=== PATIENT | female | born 1985 | race Caucasian/White ===

== ENCOUNTER → 2016-04-03 | Outpatient (CLI) | payer OTHER ==
[~2016-04-03] MED LIST: FRRS300 PO; OXYC-57 PO; PRENTAB26 PO
[2016-04-03 13:05] LABS: BASO % 0.3 %; BASO ABS # 0.04 K/uL (0-0.2); COMPLETE YES; EOS % 0.9 %; HEMATOCRIT 39.2 % (37-47); IG% 0.3 %; LYMPH % 17.8 %; LYMPH ABS # 2.38 K/uL (1.2-3.4); MEAN CELL VOLUME 80.2 fL (80-100); MEAN CORPUSCULAR HEMOGLOBIN 28.2 pg (25-34); MEAN CORPUSCULAR HGB CONC 35.2 g/dl (32-36); MEAN PLATELET VOLUME 10.2 fL (7.4-10.4); MONO % 5.8 %; NEUT % 74.9 %; PLATELET COUNT 288 K/uL (130-400); RED BLOOD COUNT 4.89 M/uL (4.2-5.4); WHITE BLOOD COUNT 13.35 K/uL (4.8-10.8)
== END | disposition home or self-care (01) ==
LOC: C.LAB1850 11:33
PROVIDERS: ATTEND Obstetrics & Gynecology
DX: Z34.00 Encounter for supervision of normal first pregnancy, unspecified trimester (principal)

== ENCOUNTER → 2016-04-03 | Outpatient (CLI) | payer OTHER ==
[2016-04-03 13:45] LABS: URINE APPEARANCE CLEAR (CLEAR); URINE BILIRUBIN NEG (NEG); URINE COLOR YELLOW; URINE NITRITE NEG (NEG); URINE SPECIFIC GRAVITY 1.005 (1.000-1.030); UROBILINOGEN NEG (NEG)
[2016-04-03 13:48] LABS: MANUAL MICROSCOPIC REQUIRED? NO; REVIEW REQ? NO
[2016-04-08 03:25] LABS: CHLAMYDIA TRACH RNA*** NOT DETECTED (NOT DETECTED); GC (NEIS GONORRHOEAE)RNA** NOT DETECTED (NOT DETECTED)
== END | disposition home or self-care (01) ==
LOC: C.LABSPEC 13:18
PROVIDERS: ATTEND Obstetrics & Gynecology
DX: Z34.00 Encounter for supervision of normal first pregnancy, unspecified trimester (principal)

== ENCOUNTER → 2016-04-03 | Outpatient (CLI) | payer OTHER | END | disposition home or self-care (01) | LOC: C.PAPS 15:04 | PROVIDERS: ATTEND Obstetrics & Gynecology | DX: Z34.01 Encounter for supervision of normal first pregnancy, first trimester (principal) ==

== ENCOUNTER → 2016-05-28 | Outpatient (CLI) | payer OTHER ==
[2016-05-28 19:40] LABS: GTGD 50 Grams
== END | disposition home or self-care (01) ==
LOC: C.LAB1850 14:47
PROVIDERS: ATTEND Obstetrics & Gynecology
DX: Z34.01 Encounter for supervision of normal first pregnancy, first trimester (principal)

== ENCOUNTER → 2016-08-21 | Outpatient (CLI) | payer OTHER ==
[2016-08-21 14:49] LABS: URINE APPEARANCE CLEAR (CLEAR); URINE BILIRUBIN NEG (NEG); URINE COLOR YELLOW; URINE EPITHELIAL CELL AUTO >30 /lpf (0-5); URINE NITRITE NEG (NEG); URINE SPECIFIC GRAVITY 1.013 (1.000-1.030); UROBILINOGEN NEG (NEG)
[2016-08-21 15:12] LABS: MANUAL MICROSCOPIC REQUIRED? NO; REVIEW REQ? NO
== END | disposition home or self-care (01) ==
LOC: C.LABSPEC 13:55
PROVIDERS: ATTEND Obstetrics & Gynecology
DX: Z33.1 Pregnant state, incidental (principal)

== ENCOUNTER → 2016-09-19 | Outpatient (CLI) | payer OTHER | END | disposition home or self-care (01) | LOC: C.LAB1850 07:47 | PROVIDERS: ATTEND Obstetrics & Gynecology | DX: O28.9 Unspecified abnormal findings on antenatal screening of mother (principal) ==

== ENCOUNTER → 2016-10-21 | Outpatient (CLI) | payer OTHER | END | disposition home or self-care (01) | LOC: C.LABSPEC 16:46 | PROVIDERS: ATTEND Obstetrics & Gynecology | DX: Z33.1 Pregnant state, incidental (principal) ==

== ENCOUNTER → 2016-10-22 | Outpatient (CLI) | payer OTHER ==
[2016-10-22 17:36] LABS: BASO % 0.2 %; BASO ABS # 0.03 K/uL (0-0.2); COMPLETE YES; HEMATOCRIT 34.6 % (37-47); IG% 1.5 %; LYMPH ABS # 2.27 K/uL (1.2-3.4); MEAN CELL VOLUME 82.4 fL (80-100); MEAN CORPUSCULAR HEMOGLOBIN 26.4 pg (25-34); MEAN CORPUSCULAR HGB CONC 32.1 g/dl (32-36); MEAN PLATELET VOLUME 10.7 fL (7.4-10.4); MONO % 5.5 %; NEUT % 77.8 %; PLATELET COUNT 335 K/uL (130-400); WHITE BLOOD COUNT 16.24 K/uL (4.8-10.8)
[2016-10-22 17:54] LABS: ALT/SGPT 32 U/L (12-78); AST/SGOT 27 U/L (15-37); CREATININE 0.53 mg/dl (0.60-1.20)
[2016-10-22 17:55] LABS: URINE TOTAL PROTEIN 5.2 mg/dl (0-11.9)
[2016-10-22 23:15] LABS: URINE TOTAL PROTEIN CALC 140.4 mg/24 hr (0-149.1)
[2016-10-22 23:16] LABS: CREATININE 0.52 mg/dl (0.6-1.2)
== END | disposition home or self-care (01) ==
LOC: C.LAB1850 16:56
PROVIDERS: ATTEND Obstetrics & Gynecology
DX: O13.3 Gestational [pregnancy-induced] hypertension without significant proteinuria, third trimester (principal)

== ENCOUNTER 2016-10-24 12:17 | Inpatient (IN) | payer OTHER ==
[~2016-10-24] VITALS: Ht 160 cm; Wt 71.2 kg
[2016-10-24] MEDS ORDERED: LACTATED RINGER'S 1000ML 1,000 ML IV PRN (12:49)
[2016-10-24] MEDS ORDERED: LACTATED RINGER'S 1000ML 500 ML IV PRN ×2 (12:49→22:58)
[2016-10-24] MEDS ORDERED: OXYTOCIN 30 UNITS/500ML NSS IV PRN (13:00)
[2016-10-24 13:13] LABS: HEMATOCRIT 30.9 % (37-47); MEAN CELL VOLUME 81.5 fL (80-100); MEAN CORPUSCULAR HEMOGLOBIN 26.6 pg (25-34); MEAN CORPUSCULAR HGB CONC 32.7 g/dl (32-36); MEAN PLATELET VOLUME 10.7 fL (7.4-10.4); PLATELET COUNT 296 K/uL (130-400); RED BLOOD COUNT 3.79 M/uL (4.2-5.4); WHITE BLOOD COUNT 12.85 K/uL (4.8-10.8)
[2016-10-24] MEDS ORDERED: MISOPROSTOLTAB 50 MCG TAB PV SCH (13:15)
[2016-10-24] MEDS ORDERED: PATIENT'S ALLERGY INFO NEEDS ENTERED SCH (13:15)
[2016-10-24] MEDS ORDERED: MISOPROSTOLTAB 50 MCG TAB ONE (13:27)
[2016-10-24 13:45] VITALS: Ht 160 cm; Wt 71.2 kg
[2016-10-24] MEDS ORDERED: PRENTAB26 PO (13:50)
[2016-10-24] MEDS: LACTATED RINGER'S 1000ML 1,000 ML IV SCH ×2 (14:44→15:53)
[2016-10-24] MEDS ORDERED: FENTANYL 2MCG/ML ROPIV 1.25MG/ML 100ML BAG EPI ONE (22:21)
[2016-10-24] MEDS ORDERED: FENTANYL CITRATE INJ 50 MCG/1 ML 2 ML VIAL ONE (22:21)
[2016-10-24] MEDS ORDERED: EpHEDrine SULFATE INJ 50 MG/ML AMP ONE (22:21)
[2016-10-24] MEDS ORDERED: BUPIVACAINE 0.25% 30 ML VIAL ONE (22:21)
[2016-10-24] MEDS ORDERED: NALOXONE HCL INJ 1 MG in SODIUM CHLORIDE 0.9% 1000ML 1,000 ML IV PRN ×4 (22:58)
[2016-10-24] MEDS ORDERED: DiphenhydrAMINE HCL 50 MG/ML VIAL IV PRN (23:00)
[2016-10-24] MEDS ORDERED: PROMETHAZINE HCL INJ 25 MG in SODIUM CHLORIDE 0.9% 50ML 50 ML IV PRN (23:00)
[2016-10-24] MEDS ORDERED: NALOXONE HCL INJ 0.4 MG/1 ML VIAL/CARP IV PRN (23:00)
[2016-10-24] MEDS ORDERED: NALBUPHINE HCL INJ 10 MG/ML AMP IV PRN (23:00)
[2016-10-24] MEDS ORDERED: EpHEDrine SULFATE INJ 50 MG/ML AMP IV PRN (23:00)
[2016-10-24] MEDS ORDERED: ONDANSETRON INJ 2 MG/ML 2 ML VIAL IV PRN (23:00)
[2016-10-24] MEDS ORDERED: FENTANYL 2MCG/ML ROPIV 1.25MG/ML 100ML BAG EPI PRN (23:00)
[2016-10-25] MEDS ORDERED: LACTATED RINGER'S 1000ML 1,000 ML IV SCH (07:05)
--- NOTE | 2016-10-25 07:13 | Anesthesia Procedure Note ---
Anesthesia Epidural Removal Nt Date & Time Oct 25, 2016 at 07:13 Vital Signs Pain Intensity: 0.0 Notes Mental Status: alert / awake / arousable, participated in evaluation Nausea / Vomiting: adequately controlled Pain: adequately controlled Airway Patency, RR, SpO2: stable & adequate BP & HR: stable & adequate Hydration State: stable & adequate Neuraxial Anesthesia: was administered, sensory block is resolving Anesthetic Complications: no major complications apparent, pt satisfied with anesthetic care Epidural: removed without complications, with tip intact
[2016-10-25] MEDS ORDERED: LANOLIN OINT EXT PRN ×2 (07:15)
[2016-10-25] MEDS ORDERED: OXYTOCIN 30 UNITS/500ML NSS IV PRN (07:15)
[2016-10-25] MEDS ORDERED: SUPERCREAM 0.870 % 15GM JAR EXT PRN (07:15)
[2016-10-25] MEDS ORDERED: DIPHTHERIA/TETANUS/PERTUSSIS 0.5 ML SYR/VIAL IM. ONE (07:15)
[2016-10-25] MEDS ORDERED: HYDROCORTISONE ACETATE 25 MG SUPP PR PRN (07:15)
[2016-10-25] MEDS ORDERED: BENZOCAINE 20% AER SPR 82.5 GM CAN EXT PRN (07:15)
[2016-10-25] MEDS: ACETAMINOPHEN 325 MG TAB PO PRN ×2 (08:36→18:42)
--- NOTE | 2016-10-25 09:00 | DELIVERY SUMMARY ---
DATE OF OPERATION: 10/25/2016 PREOPERATIVE DIAGNOSES: 1. [place] intrauterine at term. 2. Gestational hypertension. 3. Group B strep negative. POSTOPERATIVE DIAGNOSES: Same. PROCEURE: Spontaneous vaginal delivery and repair of second degree laceration. SURGEON: Bernadine Juarez MD. APPEALS EXAMINER: None. ESTIMATED BLOOD LOSS: 350. COMPLICATIONS: None. DISPOSITION: Stable in labor and delivery. DESCRIPTION: Kristen is a 31-year-old G1, P0 who presented for induction of labor due to gestational hypertension at term on 10/24/2016. She was induced using 50 mcg of Cytotec per vagina for cervical ripening and this appeared to kick her directly in to labor. She continued to contract q. 1 to 2 minutes throughout the night. She ultimately spontaneously ruptured her membranes and did receive an epidural for pain management. She reached complete dilation in the early hours of October 25. She was coached through pushing which she did extremely well and I was brought to the bed side. I then gowned for delivery. As the baby's head had descended rapidly, there was noted to be a deceleration of the heart rate which was persistently in the 60-80 range. Kristen was coached through additional pushing and was able to bring the head to but not delivery. I then verbally consented Ms. Diana for a midline episiotomy in order to effect delivery as I was concerned for the heart tones. She did agree to the same. Through her next push using bandage scissors, I was able to make an approximately 0.5 to 1 cm cut in the perineum before she rapidly was able to bring the head to delivery. The cord was noted to be tightly wrapped around the neck x1. I was unable to reduce this on the perineum, therefore the was delivered through this. She delivered the shoulders and the remainder of the very rapidly. The infant was placed on the maternal abdomen, where the cord was doubly clamped and cut and the was taken to the warmer for further attention. There was noted to be a second degree perineal laceration, which was repaired in the usual manner with 3-0 Vicryl suture. The fundus was firm. Lochia was minimal and there were no cervical or vaginal lacerations requiring repair and at the present time, the mother and baby are in stable condition having tolerated delivery well. I attest to the content of the Intraoperative Record and any orders documented therein. Any exception s are noted below.
[2016-10-25] MEDS: PRENATAL VITAMIN TAB PO SCH (09:21)
[2016-10-25] MEDS: DOCUSATE SODIUM 100 MG CAP PO SCH ×2 (09:21→19:52)
[2016-10-25 11:00] VITALS: BP 139/86; PULSE 90; TEMP 36.7
[2016-10-25 15:15] VITALS: BP 151/88; PULSE 96; TEMP 36.8
[2016-10-25 20:20] VITALS: BP 135/82; PULSE 87; TEMP 36.8
[2016-10-25 22:45] VITALS: BP 146/88; PULSE 87; TEMP 36.5
[2016-10-25] MEDS: OXYCODONE/ACETAMINOPHEN 5-325 TAB PO PRN (22:49)
[2016-10-26 03:45] VITALS: BP 147/89; PULSE 78; TEMP 36.7
[2016-10-26] MEDS: OXYCODONE/ACETAMINOPHEN 5-325 TAB PO PRN ×2 (04:01→08:31)
[2016-10-26 07:37] LABS: HEMATOCRIT 28.7 % (37-47)
[2016-10-26 08:20] VITALS: BP 156/93; PULSE 80; TEMP 36.5
[2016-10-26] MEDS: DOCUSATE SODIUM 100 MG CAP PO SCH (08:31)
[2016-10-26] MEDS: PRENATAL VITAMIN TAB PO SCH (08:31)
--- NOTE | 2016-10-26 08:38 | Progress Note ---
Subjective Oct 26, 2016. Subjective conversation w/ patient, physical exam Ambulation: ambulating normally Voiding: no voiding problems Passing Gas: Yes Diet Tolerance: Regular Diet Lochia: Small Feeding Type: Breast Feeding Review of Systems Constitutional: No fever, No chills, No sweats, No weight loss, No weakness, No fatigue, No problem reported Objective Vital Signs Date Time Temp Pulse Resp B/P (MAP) Pulse Ox O2 Delivery O2 Flow Rate FiO2 10/26/16 03:45 36.7 78 18 147/89 (108) Room Air 10/25/16 22:45 36.5 87 18 146/88 (107) Room Air 10/25/16 22:45 Room Air 10/25/16 20:20 36.8 87 18 135/82 (99) Room Air 10/25/16 15:15 Room Air 10/25/16 15:15 36.8 96 20 151/88 (109) Room Air 10/25/16 11:00 36.7 90 18 139/86 (103) Room Air 10/25/16 11:00 Room Air Physical Exam General Appearance: WELL-APPEARING, NO APPARENT DISTRESS Abdomen: normal bowel sounds, non tender, soft Fundus: Firm, Non-Tender, Relation to Umbilicus (at U) Extremities: no calf tenderness Laboratory Results Last 24 Hours Test 10/26/16 07:14 Hemoglobin 9.6 g/dL Hematocrit 28.7 % Assessment and Plan Day#: 1 Continue Routine Care: stable course- history of gestational HTN BP's have been mildly elevated, she is asymptomatic will discharge to home later if BP's continue to be reasonable followup for BP check in 2 weeks.
[2016-10-26 08:45] VITALS: BP 164/102
[2016-10-26] MEDS ORDERED: FRRS300 PO (09:33)
--- NOTE | 2016-10-26 09:35 | Discharge Instructions ---
Discharge Instructions Date of Service Oct 26, 2016. Admission Reason for Admission: Induction Discharge Discharge Diagnosis / Problem: gestational hypertension, normal delivery Discharge Goals Goal(s): Routine recovery after delivery Medications Continue Dispensed Medications: supercream, dermaplast, tucks, lansinoh Activity Recommendations Activity Limitations: per Instructions/Follow-up section . Instructions / Follow-Up Instructions / Follow-Up ACTIVITY RECOMMENDATIONS: * Gradual return to full activity over the next 2-3 weeks. * No lifting - nothing heavier than baby over the next 2-3 weeks. * Do not engage in vigorous exercise, sexual activity or sports until cleared by your physician. * Do not drive or operate any motorized equipment until cleared by your physician. * You may shower/bathe daily. MEDICATIONS: For discomfort or pain, you may use Acetaminophen (Tylenol), Ibuprofen (Advil), or Naproxen (Aleve) following the package directions. For constipation you may use Colace following the package directions. BREAST CARE: If you are not breast feeding: * Wear a supportive bra 24 hours a day for one to two weeks. * Avoid stimulating your breasts and nipples as much as possible during the first few weeks after delivery. * When taking a shower, have the warm water hit your back, not breasts. * When your breasts feel full, apply ice packs. Usually three to four times a day helps ease the discomfort. * Take a mild pain medication (Tylenol / Motrin) when you are uncomfortable. If breast feeding: * Use breast milk to lubricate nipples. Lansinoh cream may be used for sore nipples. You do not need to remove cream prior to breast feeding. If using a different brand of cream, check the label for directions regarding removal of cream prior to nursing. * Wear a supportive bra. * If having problems with breasts or breast feeding, call a independent beauty consultant or your health care provider. EPISIOTOMY CARE: After delivery, if you have an episiotomy (stitches), the following steps will ease discomfort and aid healing. * For the first 24 hours after delivery, place ice packs next to your episiotomy to help reduce swelling. * After the first 24 hour-period, sitz baths, either portable or in the tub, are suggested. A shower with a shower arm sprayed over the episiotomy may be comforting. * Diana care should be done after each voiding and bowel movement. Squirt warm water from a plastic bottle over the perineum (region of the body between the anus and urinary opening) and pat dry. * Use Dermoplast to ease discomfort. Shake container. [place] directly over the episiotomy. Place a Tucks on a clean sanitary pad next to your episiotomy. SPECIAL CARE INSTRUCTIONS: When you are discharged from the hospital, it is important for you to follow the instructions listed below: * During the first week at home, you should be able to care for yourself and your baby. In addition, the usual light household activities are encouraged. * Limit your activities to the way you feel. Do not try to clean the house or move furniture. Be sensible. * If you actively engage in sports and have done so up until the time of your delivery, you may resume these activities as soon as you feel able. This may take up to one month or even longer. Use good judgment. * Continue to take your vitamins for at least six weeks after the of your baby. * Your diet need not be limited unless you were on a special diet before your delivery. Breast-feeding mothers need around 2500 calories per day and at least 64-80 ounces of fluid per day (8 to 10 glasses). * You should eat foods from the four major food groups. Crash diets or fad diets are to be avoided. Eating lean meats, fresh fruits and vegetables, low-fat dairy products, high fiber foods and a regular exercise program, will help you get back to your pre- weight without putting your health at risk. * Constipation is sometimes a problem after delivery. Take a mild laxative as needed. If breast feeding, Milk of Magnesia is acceptable to use. You may use a suppository or Fleets enema if no episiotomy. * A daily shower or tub bath is suggested. Be sure to thoroughly and gently dry the perineum. * A bloody vaginal discharge will usually continue until around four weeks post . A small amount of bleeding may continue for as long as six weeks. Vaginal discharge changes from the bright red bleeding after delivery to pink then brownish and finally yellowish-pink before becoming white and disappearing. * Bleeding may increase with activity. Your first period may come in 4-8 weeks. If you are breast feeding, your period may be delayed even longer. * [place] (sex) can begin whenever both you and your partner feel comfortable and do not have any form of genital infection. It is recommended that you wait at least six weeks for internal and external healing to occur. If you have questions, please talk to your health care practitioner. A condom should be used to prevent infection and . * Foreplay, gentle intercourse and lubrication is very important the first several times to prevent pain. A water-based lubricant such as K-Y jelly or Astroglide may be used. * If you have RH negative blood and your baby is RH positive, you will receive RHOGAM by injection prior to discharge. The nurse will give you a card to keep with you that has the date and place that you received RHOGAM after delivery. * During your care, you had a Rubella screen done to check for the presence of rubella antibodies in your blood. If your test was negative, you will receive a Rubella vaccine prior to discharge. This vaccine may cause a fever, soreness at the injection site and flu-like symptoms. If these symptoms persist, notify your health care practitioner. is not advised for one month after a Rubella vaccine. * Verbalizes understanding of car seat law as reviewed with patient nursing. * Car Seat hand-out given and reviewed with patient by nursing. * Shaken baby information reviewed with patient by nursing. Call you doctor if: * Heavy bleeding (saturating several pads an hour) or passing clots the size of your fist. * A fever >101 degrees F (38.3 degrees C) on two occasions four hours apart and /or chills. * Unusual pain in the pelvic or vaginal areas. * "Baby Blues" lasting longer than two weeks. If you have any questions or concerns, call your health care practitioner at . FOLLOW UP VISIT: * Please call the office at to schedule a 6 week examination. It is important you keep this appointment. It is important for you to make arrangements for either yearly or twice yearly check-ups thereafter. Blood pressure check in 2 weeks - the office will call with an appointment. Current Hospital Diet Patient's current hospital diet: Regular OB Diet Discharge Diet Recommended Diet: Regular OB Diet Pending Studies Studies pending at discharge: no Medical Emergencies . Who to Call and When: Medical Emergencies: If at any time you feel your situation is an emergency, please call 911 immediately. . Non-Emergent Contact Non-Emergency issues call your: Process Engineer . . "Provider Documentation" section prepared by Alondra Katz. . VTE Core Measure Inpt VTE Proph given/why not?: Treatment not indicated
[2016-10-26] MEDS ORDERED: OXYC-57 PO (09:38)
[2016-10-26 12:15] VITALS: BP 153/96; PULSE 78
[2016-10-26 14:50] VITALS: BP_DIAS 96; PULSE 78; TEMP 36.5
[2016-10-27] MEDS ORDERED: FERROUS SULFATE 325 MG TAB PO SCH (08:00)
== END 2016-10-26 15:35 | disposition home or self-care (01) | DRG 775 ==
LOC: C.LD 12:17 → C.OBG 10-25 16:45
PROVIDERS: ADMIT Obstetrics & Gynecology; ATTEND Obstetrics & Gynecology
PROC: 0W8NXZZ Division of Female Perineum, External Approach (ICD-10-PCS; principal; 2016-10-25)
PROC: 3E0P7GC Introduction of Other Therapeutic Substance into Female Reproductive, Via Natural or Artificial Opening (ICD-10-PCS; principal; 2016-10-25)
PROC: 10E0XZZ Delivery of Products of Conception, External Approach (ICD-10-PCS; principal; 2016-10-25)
DX: O13.4 Gestational [pregnancy-induced] hypertension without significant proteinuria, complicating childbirth (principal); Z37.0 Single live birth; O69.1XX0 Labor and delivery complicated by cord around neck, with compression, not applicable or unspecified; O76 Abnormality in fetal heart rate and rhythm complicating labor and delivery; O99.02 Anemia complicating childbirth; D64.9 Anemia, unspecified; O99.52 Diseases of the respiratory system complicating childbirth; J45.909 Unspecified asthma, uncomplicated; O99.214 Obesity complicating childbirth; E66.9 Obesity, unspecified; Z68.27 Body mass index [BMI] 27.0-27.9, adult; Z3A.37 37 weeks gestation of pregnancy

== ENCOUNTER → 2016-10-31 | Outpatient (CLI) | payer OTHER ==
[2016-10-31 18:02] LABS: URINE APPEARANCE CLEAR (CLEAR); URINE BILIRUBIN NEG (NEG); URINE COLOR YELLOW; URINE EPITHELIAL CELL AUTO 20-30 /lpf (0-5); URINE NITRITE NEG (NEG); URINE PH 6.5 (4.5-7.5); URINE SPECIFIC GRAVITY 1.009 (1.000-1.030); UROBILINOGEN NEG (NEG)
[2016-10-31 18:20] LABS: MANUAL MICROSCOPIC REQUIRED? NO; REVIEW REQ? YES
== END | disposition home or self-care (01) ==
LOC: C.LABSPEC 17:10
PROVIDERS: ATTEND Obstetrics & Gynecology
DX: R39.9 Unspecified symptoms and signs involving the genitourinary system (principal)

== ENCOUNTER 2019-06-29 07:45 | Inpatient (IN) ==
[2019-06-29] MEDS ORDERED: LACTATED RINGER'S 1,000 ML IV PRN (08:01)
[2019-06-29] MEDS ORDERED: OXYTOCIN 30 UNITS/500 ML BAG IV PRN ×3 (08:01→11:50)
[2019-06-29] MEDS ORDERED: BUPIVACAINE 0.25% 30 ML VIAL ONE (08:24)
[2019-06-29] MEDS ORDERED: fentaNYL citrate 100 MCG/2 ML VIAL ONE (08:24)
[2019-06-29] MEDS ORDERED: ePHEDrine sulfate 50 MG/ML AMP ONE (08:24)
[2019-06-29] MEDS ORDERED: fentaNYL 2MCG/ML ROPIV 1.25MG/ML 100 ML BAG EPI ONE (08:25)
[2019-06-29 08:31] LABS: Hematocrit (blood only) 34.5 % (37-47); Hemoglobin 10.8 g/dL (12.0-16.0); Mean Corpuscular Hemoglobin 24.8 pg (25-34); Mean Corpuscular Volume 79.3 fL (80-100); Platelet Count 261 K/uL (130-400); RDW Coefficient of Variation 15.4 % (11.5-14.5); RDW Standard Deviation 44.3 fL (36.4-46.3); Red Blood Count 4.35 M/uL (4.2-5.4); White Blood Count 18.99 K/uL (4.8-10.8)
--- NOTE | 2019-06-29 08:35 | Anesthesiology Consultation ---
Date of Service June 29, 2019 Assessment & Plan (1) Encounter for pre-operative examination: Chart Review Chart Review: Acceptable Risk for Labor Epidural Consults Requested none ASA ASA2 Proposed Anesthesia Anesthesia Type: Labor Epidural Risk / Benefits Reviewed With: PT / POA / Parent / Guardian, Accepts Plan and Informed Consent Obtained History Height/Weight Weight: 75.735 kg Allergies Allergy/AdvReac Type Severity Reaction Status Date / Time Bactrim Allergy Intermediate HIVES Verified 10/24/16 13:41 Sulfa (Sulfonamide Allergy Intermediate HIVES Verified 06/28/19 09:43 Antibiotics) sulfamethoxazole Allergy Intermediate HIVES Verified 06/28/19 09:43 trimethoprim Allergy Intermediate HIVES Verified 06/28/19 09:43 cashew nut Allergy Mild GI SYMPTOMS Verified 06/28/19 09:43 walnut Allergy Mild GI SYMPTOMS Verified 06/28/19 09:43 Medications Home Medications Medication Instructions Recorded Confirmed Last Taken vit [id number] pkg PO 06/29/19 06/28/19 08:00 [ + DHA] Past Medical History Medical History History of gestational hypertension Migraine Varicella Exercise / Class Metabolic Activity II 4-5 Yardwork/Stairs/Walk up hill Past Family History Family History Family/Other Diabetes Family/Other Breast cancer Grandmother (Paternal) Endometriosis Aunt Endometriosis Mother Endometriosis Ovarian cyst Fibroid Past Surgical History Surgical History S/P wisdom tooth extraction Past Anesthesia History No Hx of Anesthesia Complications and No Family Hx of Anesthesia Complications History of PONV No Hx of PONV and No Hx of Motion Sickness Social History Smoking Status: Never smoker Hx Alcohol Use: No Hx Substance Use: No substance use type: does not use Physical Exam Vital Signs Last Vital Signs Temp 98.1 F 06/29/19 08:12 Pulse 95 H 06/29/19 08:30 Resp 22 06/29/19 08:12 BP 112/81 06/29/19 07:58 Pulse Ox 94 06/29/19 08:30 ENMT Mouth: no dentition abnormality Thyromental Distance: > or= 3.5 Finger Breadths Mallampati Class: II Neck normal visual inspection Respiratory normal respiratory effort Auscultation: lungs clear to auscultation bilaterally Cardiovascular Rate/Rhythm: regular rate and regular rhythm Testing Laboratory Results 06/29/19 08:21
[2019-06-29] MEDS ORDERED: ePHEDrine sulfate 50 MG/ML AMP IV PRN (08:54)
[2019-06-29] MEDS ORDERED: DiphenhydrAMINE HCL 50 MG/ML VIAL IV PRN (08:54)
[2019-06-29] MEDS ORDERED: fentaNYL 2MCG/ML ROPIV 1.25MG/ML 100 ML BAG EPI PRN (08:54)
[2019-06-29] MEDS ORDERED: NALOXONE HCL 1 MG in SODIUM CHLORIDE 0.9% 1000ML 1,000 ML IV PRN (08:54)
[2019-06-29] MEDS ORDERED: NALOXONE HCL 0.4 MG/1 ML VIAL/CARP IV PRN (08:54)
[2019-06-29] MEDS ORDERED: ONDANSETRON INJ 2 MG/ML 2 ML VIAL IV PRN (08:54)
[2019-06-29] MEDS ORDERED: NALBUPHINE HCL INJ 10 MG/ML AMP IV PRN (08:54)
[2019-06-29 08:56] LABS: Mean Corpuscular Hgb Conc 31.3 g/dL (32-36)
--- NOTE | 2019-06-29 09:05 | History & Physical Report ---
Date of Service June 29, 2019 Assessment & Plan (1) : 33 yo @ 40 weeks 4 days here for induction of labor for post FELICIANO complicated by hx. of gHTN, Asthma and migraines - GBS negative, blood type A+ - Ab negative, RI, RPR NR, Hep-B negative, - epidural for pain control - Balloon was placed one day prior and removed from the vagina this morning - SVE 5 1/2 80% and -2 - AROM @ 9:10 AM - initiate Pitocin fetus - vertex - category 1 tracing History of Present Illness Chief Complaint: induction Primary Care Provider: NO PCP Kristen Stringer is a 33 yo @ 40.4 determined via certain LMP. She is here for induction of labor for post estimated due date, and has been having contractions since midnight that intensified at 2AM. She has not had any loss of fluid or bleeding with good movement. Her prior delivery was complicated by gestational hypertension. She was started on ASA for gestational hypertension this , she took ASA for 2 weeks and stopped since her blood pressures were not elevated. She did not have insurance until February 2019 and declined some of the tests. She had declined flu and Tdap. She has a history of Migraines but has not had any during . She has a history of Asthma but has not had to use an inhaler during . Allergies Allergy/AdvReac Type Severity Reaction Status Date / Time Bactrim Allergy Intermediate HIVES Verified 10/24/16 13:41 Sulfa (Sulfonamide Allergy Intermediate HIVES Verified 06/28/19 09:43 Antibiotics) sulfamethoxazole Allergy Intermediate HIVES Verified 06/28/19 09:43 trimethoprim Allergy Intermediate HIVES Verified 06/28/19 09:43 cashew nut Allergy Mild GI SYMPTOMS Verified 06/28/19 09:43 walnut Allergy Mild GI SYMPTOMS Verified 06/28/19 09:43 Home Medications Home Medications Medication Instructions Recorded Confirmed Type vit [id number] pkg PO 06/29/19 History [ + DHA] Patient History Medical History History of gestational hypertension Migraine Varicella Surgical History S/P wisdom tooth extraction Family History Family/Other Diabetes Family/Other Breast cancer Grandmother (Paternal) Endometriosis Aunt Endometriosis Mother Endometriosis Ovarian cyst Fibroid Social History (Updated 12/16/18 @ 13:51 by Zita Silver) Preferred Language: Korean Communication Ability: Effective Beliefs That Will Affect Care: None marital status: marital status details: Gutierrez Stringer (30) [phone] Current Living Situation: Spouse and Family Current Living Situation Comment: and daughter current occupational status: employed current occupation: Realtor Other Information That Helps Us Care for You: No Feels Safe at Home: Yes Safety Concerns: Feels Safe At This Time Smoking Status: Never smoker Hx Alcohol Use: No Hx Substance Use: No Childhood Exposure to Second-Hand Smoke: No Review of Systems Denies: fevers/chills Denies: SOB/cough/wheezing Denies: CP/palpitations Denies UTI Sx. Denies: headaches, vision changes Admits: mild swelling of her lower extremity Physical Exam Physical Exam: General: Alert, oriented. No acute distress. Cardiac: Regular rate and rhythm, no murmurs/rubs/gallops. Respiratory: Clear to auscultation no wheezes/rales/rhonchi. No increased work of breathing. Symmetrical chest rise. No respiratory distress. Abdomen: Soft, nontender, nondistended. Bowel sounds present. Fetus: Vertex, estimated weight (7.5) Lower Extremities: No lower extremity edema or swelling. No deep calf pain. Jazmin's negative bilaterally. Results & Data Vital Signs (Past 12 Hours) Vital Signs Temp Pulse Resp BP Pulse Ox 06/29/19 08:58 80 90 06/29/19 08:57 83 106/59 L 06/29/19 08:56 68 68/40 L 06/29/19 08:55 65 93 06/29/19 08:54 106 H 136/73 06/29/19 08:53 96 H 91 06/29/19 08:51 113 H 121/58 L 06/29/19 08:50 101 H 94 06/29/19 08:49 90 132/78 06/29/19 08:47 88 133/77 91 06/29/19 08:45 86 122/94 93 06/29/19 08:41 113 H 86 L 06/29/19 08:40 115 H 93 06/29/19 08:35 101 H 82 L 06/29/19 08:30 95 H 94 06/29/19 08:12 36.7 C 22 06/29/19 07:58 36.7 C 93 H 22 112/81 Monitoring External Monitor - Cat 1 tracing - Normal FHT variability - no early decelerations, no late decelerations, no variable decelerations Supervising Physician Co-Signing Physician Notes Resident Physician Supervision Note: I was present with Dr. Martins during the history and exam. I discussed the case with the resident and agree with the findings and plan as documented in the note. Any exceptions or clarifications are listed here: 33-year-old 2 para 1 with an EDC of 24 June at 40+ weeks gestational age who was admitted in active labor. Patient had been scheduled for postdates induction. She had a cervical [place] placed last night. Patient states contractions increased in intensity over the evening. Patient has had a benign course. She has a history of gestational hypertension but was noncompliant with taking baby aspirin. Laboratory values show blood type of A+, antibody negative, rubella immune, hepatitis B negative, she declined genetic screening, normal 1 hour Glucola x2, and a negative third trimester beta strep culture. Upon admission the patient was noted to be 5 to 6 cm in active labor. Anesthesia was consulted and an epidural was placed. After placement of the epidural the patient had artificial rupture membranes for clear fluid. Contractions were mild to palpation after epidural and Pitocin augmentation will be initiated. Anticipate vaginal delivery. Documented By: Rod Rhodes Jr, MD, FACOG Resident Activity Tracking Resident Involvement: Resident Care Provided Care Provided: OB Delivery
--- NOTE | 2019-06-29 11:09 | Labor Progress Brief Note ---
Date of Service June 29, 2019 Subjective Reason For Note: Routine Evaluation feeling pressure Assessment & Plan (1) Prolonged , antepartum: - tracing Cat II, variability with accels - will begin 2nd stage Physical Exam Genitourinary: Cervix: complete/(+)1 Results & Data Vital Signs (Past 12 Hours) Vital Signs Temp Pulse Resp BP Pulse Ox 2020 11:05 133 H 99 05/20/20 11:00 91 H 99 05/20/20 10:56 112 H 108/58 L 05/20/20 10:55 111 H 99 05/20/20 10:50 109 H 98 05/20/20 10:45 83 98 05/20/20 10:41 83 110/60 05/20/20 10:40 86 99 05/20/20 10:35 85 98 05/20/20 10:30 91 H 98 05/20/20 10:25 87 123/62 99 05/20/20 10:20 88 98 05/20/20 10:15 91 H 99 05/20/20 10:10 90 109/63 99 05/20/20 10:05 88 100 05/20/20 10:00 88 99 05/20/20 09:56 89 121/78 05/20/20 09:55 87 99 05/20/20 09:50 79 99 05/20/20 09:45 83 100 05/20/20 09:41 84 122/66 05/20/20 09:40 86 99 05/20/20 09:35 87 99 05/20/20 09:30 85 100 05/20/20 09:25 79 99 05/20/20 09:24 77 117/60 05/20/20 09:20 98 H 100 05/20/20 09:19 90 121/79 05/20/20 09:15 105 H 100 05/20/20 09:14 91 H 123/77 05/20/20 09:10 96 H 152/89 H 100 05/20/20 09:05 92 H 99 05/20/20 09:01 93 H 112/73 05/20/20 09:00 88 120/64 100 05/20/20 08:58 80 90 05/20/20 08:57 83 106/59 L 05/20/20 08:56 68 68/40 L 05/20/20 08:55 65 93 05/20/20 08:54 106 H 136/73 06/29/19 08:53 96 H 91 06/29/19 08:51 113 H 121/58 L 06/29/19 08:50 101 H 94 06/29/19 08:49 90 132/78 06/29/19 08:47 88 133/77 91 06/29/19 08:45 86 122/94 93 06/29/19 08:41 113 H 86 L 06/29/19 08:40 115 H 93 06/29/19 08:35 101 H 82 L 06/29/19 08:30 95 H 94 06/29/19 08:12 98.1 F 22 06/29/19 07:58 98.1 F 93 H 22 112/81 Coding Level of Care Code None Diagnoses Prolonged , antepartum O48.1
[2019-06-29] MEDS ORDERED: ACETAMINOPHEN 325 MG TAB PO PRN (11:50)
[2019-06-29] MEDS ORDERED: DIPHTHERIA/TETANUS/PERTUSSIS 0.5 ML SYR/VIAL IM ONE (11:50)
[2019-06-29] MEDS ORDERED: SUPERCREAM 0.870% 15 GM JAR EXT PRN (11:50)
[2019-06-29] MEDS ORDERED: ACETAMINOPHEN W/CODEINE #3 1 TAB PO PRN (11:50)
[2019-06-29] MEDS ORDERED: BENZOCAINE 20% AER SPR 82.5 GM CAN EXT PRN (11:50)
[2019-06-29] MEDS ORDERED: HYDROCORTISONE ACETATE 25 MG SUPP PR PRN (11:50)
[2019-06-29 11:59] LABS: CO2 Cord Arterial Blood 64 mmHg (39.1-73.5); HCO3 Cord Arterial Blood 27 mmol/L (19.7-28.5); PO2 Cord Arterial Blood 17 mmHg (4.1-31.7); pH Cord Arterial Blood 7.24 (7.1-7.38)
--- NOTE | 2019-06-29 12:02 | Delivery Summary ---
Vaginal Delivery Summary Date of Service June 29, 2019 Vaginal Delivery Summary Findings: Viable male infant with Apgars of 8 and 9. Baby delivered over a midline second-degree laceration with bilateral second-degree cherry-urethral tears. Cord gases and cord blood samples obtained. Placenta delivered spontaneously. Lacerations repaired with 4-0 Vicryl in a routine fashion. Estimated blood loss 300 cc. Labor note: 33-year-old 2 para 1 with an EDC of 24 June at 40+ weeks gestational age who was admitted in active labor. Patient had been scheduled for postdates induction. She had a cervical [place] placed last night. Patient states contractions increased in intensity over the evening. Patient has had a benign course. She has a history of gestational hypertension but was noncompliant with taking baby aspirin. Laboratory values show blood type of A+, antibody negative, rubella immune, hepatitis B negative, she declined genetic screening, normal 1 hour Glucola x2, and a negative third trimester beta strep culture. Upon admission the patient was 6 cm dilated in active labor. Tracing was category 2. Delivering physician assumed care for the patient at this point. Patient was uncomfortable anesthesia was consulted and an epidural was placed. After placement of the epidural the patient had artificial rupture of membranes for clear fluid. There had been no cervical changes. Contractions were palpating mild after the epidural and Pitocin augmentation was initiated. Over the next 2 hours the patient progressed to full dilatation and began her second stage. Patient pushed for approximately 10 minutes delivering the viable male . Cord was clamped and cut. Cord gases and cord blood samples were obtained. Placenta was delivered spontaneously. Inspection of the perineum showed a midline second-degree laceration with bilateral second-degree periurethral tears. All lacerations were repaired with 4-0 Vicryl. Estimated blood loss was 300 cc. Sponge and needle count was correct.
[2019-06-29 12:06] LABS: Base Excess Cord Venous Blood -1.3 mEq/L (-7.7-1.9); Cord Venous Blood HCO3 25 mmol/L (18.4-26.8); Cord Venous Blood PCO2 45 mmHg (30.4-57.2); Cord Venous Blood PO2 25 mmHg (14.1-43.3); Cord Venous Blood pH 7.35 (7.20-7.44); O2 Saturation Cord Venous Bld < 60.0 % (<68); Oxygen Sat Cord Arterial Blood < 60.0 % (<60)
[2019-06-29] MEDS: IBUPROFEN 600 MG TAB PO PRN ×3 (13:55→22:29)
--- NOTE | 2019-06-29 16:48 | Anesthesia Procedure Note ---
Date of Service June 29, 2019 Anesthesia Post Epidural Note Vital Signs Vital Signs: Temp Pulse Resp BP Pulse Ox 98.2 F 121 H 16 128/90 97 06/29/19 14:30 06/29/19 14:30 06/29/19 14:30 06/29/19 14:30 06/29/19 14:30 Notes Mental Status: alert / awake / arousable and participated in evaluation Nausea / Vomiting: adequately controlled Pain: adequately controlled Airway Patency, RR, SpO2: stable & adequate BP & HR: stable & adequate Hydration State: stable & adequate Neuraxial Anesthesia: was administered and sensory block is resolving Anesthetic Complications: no major complications apparent and Pt Satisfied with anesthetic care Epidural: Removed without complications and With tip intact
[2019-06-29] MEDS: DOCUSATE SODIUM 100 MG CAP PO SCH (21:12)
--- NOTE | 2019-06-30 05:53 | Obstetrical Progress Note ---
Date of Service June 30, 2019 Assessment & Plan Admission and Anticipated Discharge Date Admission Date: June 29, 2019 33 yo F s/p VD at 40 weeks and 4 days, complicated by history of gHTN - PPD# 1 - GBS negative, Blood Type A+ - Feels well today. Eating well, voiding well, ambulating well. - Pain well controlled. - Routine care. - After discharge will have 6 week followup with Meagan. Supervising Physician Co-Signing Physician Notes Resident Physician Supervision Note: I was present with Dr. Martins during the history and exam. I discussed the case with the resident and agree with the findings and plan as documented in the note. Any exceptions or clarifications are listed here: Doing well. Patient desires d/c. Instructions given. F/U in 6 weeks for pp check. Documented By: Rod Rhodes Jr, MD, FACOG Subjective Doing well this morning she is walking and voiding without difficulty. She has not passed gas but is eating a regular diet without nausea or vomiting. She feels that her bleeding is slowing and is but her milk has not come in yet. Pain is a 3/10 and improved with pain medication. Review of Systems Review of Systems: Denies fever, chills, sweats Denies shortness of breath, difficulty breathing, chest pain, palpitations, chest pressure. Denies breast pain. Denies dysuria. Denies headache. Physical Exam Physical Exam: General: Alert, oriented. No acute distress. Cardiac: Regular rate and rhythm, no murmurs/rubs/gallops. Respiratory: Clear to auscultation anterior and posteriorly, no wheezes/rales/rhonchi. No increased work of breathing. Symmetrical chest rise. No respiratory distress. Abdomen: Soft, nontender, nondistended. Bowel sounds present. Uterus: Uterine fundus firm, palpable 1 cm below umbilicus. Lower Extremities: No lower extremity edema or swelling. No deep calf pain. Jazmin's negative bilaterally. Results & Data ([facility]) Vital Signs (Past 12 Hours) Vital Signs Temp Pulse Pulse Resp BP Pulse Ox 06/30/19 03:45 36.5 C 69 18 139/87 97 06/29/19 23:25 36.7 C 76 18 122/78 97 06/29/19 19:15 36.8 C 86 20 131/84 98 06/29/19 18:05 92 H 122/84 Resident Activity Tracking Resident Involvement: Resident Care Provided Care Provided: Adult [facility]
[2019-06-30] MEDS: IBUPROFEN 600 MG TAB PO PRN (06:42)
[2019-06-30] MEDS: DOCUSATE SODIUM 100 MG CAP PO SCH (07:48)
[2019-06-30] MEDS ORDERED: PRENATAL VITAMIN 1 TAB PO SCH (08:00)
[2019-06-30] MEDS ORDERED: bisacodyL 5 MG TABEC PO SCH (20:00)
== END 2019-06-30 13:40 | disposition home or self-care (01) | DRG 807 ==
LOC: 4S1 07:45 → 4S2 14:16

== ENCOUNTER 2023-11-25 17:58 | Inpatient (IN) ==
[2023-11-25] MEDS ORDERED: OXYTOCIN 30 UNITS/NSS 30 UNITS/500 ML BAG IV PRN (18:30)
[2023-11-25] MEDS ORDERED: LIDOCAINE 1% LOCAL 20 ML VIAL INFIL PRN (18:30)
[2023-11-25 19:19] LABS: Hemoglobin 10.3 g/dl (12.0-16.0); Mean Corpuscular Hemoglobin 24.8 pg (25.0-34.0); Mean Corpuscular Hgb Conc 32.2 g/dL (32.0-36.0); Mean Corpuscular Volume 76.9 fL (80.0-100.0); Mean Platelet Volume 11.8 fL (9.4-12.4); Platelet Count 284 K/uL (130-400); RDW Coefficient of Variation 15.5 % (11.5-14.5); RDW Standard Deviation 42.1 fL (36.4-46.3); Red Blood Count 4.16 M/uL (4.20-5.40); White Blood Count 10.27 K/ul (4.8-10.8)
[2023-11-25] MEDS ORDERED: NIFEdipine 10 MG CAP PO STA (20:43)
[2023-11-25] MEDS: OXYTOCIN 30 UNITS/NSS 30 UNITS/500 ML BAG IV PRN (21:00)
[2023-11-25] MEDS: LACTATED RINGER'S 1,000 ML IV PRN (23:35)
[2023-11-26] MEDS ORDERED: BUPIVACAINE 0.25% PF 30 ML VIAL EPI PRN (00:22)
[2023-11-26] MEDS ORDERED: NALOXONE HCL 0.4 MG/1 ML VIAL/CARP IV PRN (00:22)
[2023-11-26] MEDS ORDERED: fentaNYL citrate PF 100 MCG/2 ML VIAL EPI PRN (00:22)
[2023-11-26] MEDS ORDERED: ePHEDrine sulfate 50 MG/ML AMP IV PRN (00:22)
[2023-11-26] MEDS ORDERED: LIDOCAINE 2% MPF LOCAL 5 ML VIAL EPI PRN (00:22)
[2023-11-26] MEDS ORDERED: diphenhydrAMINE 50 MG/ML VIAL IV PRN (00:22)
[2023-11-26] MEDS ORDERED: NALOXONE HCL 1 MG in SODIUM CHLORIDE 0.9% 1,000 ML IV PRN (00:22)
[2023-11-26] MEDS ORDERED: NALBUPHINE HCL INJ 10 MG/ML AMP IV PRN (00:22)
[2023-11-26] MEDS ORDERED: SODIUM CHLORIDE 0.9% PF INJ 10 ML VIAL EPI PRN (00:22)
[2023-11-26] MEDS ORDERED: ROPIVACAINE 0.5% PF 5 MG/ML 20 ML VIAL EPI PRN (00:22)
[2023-11-26] MEDS: LIDOCAINE 2%/EPINEPHRINE 1:200,000 20 ML PF EPI STA (00:38)
[2023-11-26] MEDS: BUPIVACAINE 0.25% PF 30 ML VIAL EPI STA (00:38)
[2023-11-26] MEDS: fentaNYL citrate PF 100 MCG/2 ML VIAL EPI STA (00:38)
--- NOTE | 2023-11-26 00:38 | Anesthesiology Consultation ---
Date of Service November 26, 2023 Assessment & Plan (1) Encounter for pre-operative examination: Chart Review Chart Review: Patient NOT seen in Pre Admission Testing and Acceptable Risk for Labor Epidural Consults Requested none History Height/Weight Height: 5 ft 3 in Weight: 72.575 kg Allergies Allergy/AdvReac Type Severity Reaction Status Date / Time Bactrim Allergy Intermediate HIVES Verified 10/24/16 13:41 Sulfa (Sulfonamide Allergy Intermediate HIVES Verified 11/25/23 13:06 Antibiotics) sulfamethoxazole Allergy Intermediate HIVES Verified 11/25/23 13:06 trimethoprim Allergy Intermediate HIVES Verified 11/25/23 13:06 cashew nut Allergy Mild GI SYMPTOMS Verified 11/25/23 13:06 walnut Allergy Mild GI SYMPTOMS Verified 11/25/23 13:06 ibuprofen [From Motrin] Allergy Hives Verified 11/25/23 18:58 Medications Home Medications Medication Instructions Recorded Confirmed Last Taken acetone (urine) test (Ketone Urine #50 ea 11/03/23 11/25/23 Unknown Test strips) blood sugar diagnostic (OneTouch #150 ea 11/03/23 11/25/23 Unknown Verio test strips) blood-glucose meter (OneTouch #1 ea 11/03/23 11/25/23 Unknown Verio Reflect Meter) lancets 33 gauge (OneTouch Delica #150 ea 11/03/23 11/25/23 Unknown Plus Lancet) PNV 153-FA 400 mcg-om3 35 mg-dha 2 tab PO DAILY 11/25/23 11/25/23 11/25/23 08:30 25 mg-epa 5 mg-fish oil chew tablet ( Gummies) Active Medications Generic Name Dose Route Start Last Admin Trade Name Freq PRN Reason Stop Dose Admin Lactated Ringer's 1,000 mls @ 125 mls/hr 11/25/23 18:30 11/26/23 00:05 Lr IV 11/27/23 18:29 50 mls/hr .Q8H PRN Infusion L&D Protocol Protocol Oxytocin 30 units in 500 mls @ 5 mls/hr 11/25/23 20:41 11/25/23 23:05 Pitocin 30 Units/Nss IV 11/27/23 20:40 0.3 units/hr .Q24H PRN 5 mls/hr Labor Induction/Augmentation Titration Protocol 0.3 UNITS/HR Past Medical History Medical History (spontaneous vaginal delivery) Asthma Encounter for pre-operative examination Prolonged , antepartum History of gestational hypertension Varicella Migraine Exercise / Class Metabolic Activity II 4-5 Yardwork/Stairs/Walk up hill Past Family History Family History Family/Other Diabetes Family/Other Breast cancer Grandmother (Paternal) Endometriosis Aunt Endometriosis Mother Endometriosis Ovarian cyst Fibroid Breast cancer age of dx 57. Genetic testing done, was a hormonal causing breast ca Past Surgical History Surgical History S/P wisdom tooth extraction Social History Smoking Status: Never smoker Do You Dip or Chew Tobacco: No Hx Alcohol Use: No Hx Substance Use: No substance use type: does not use Physical Exam Vital Signs Last Vital Signs Temp 36.8 C 11/25/23 23:30 Pulse 72 11/26/23 00:17 Resp 18 11/25/23 19:15 BP 159/96 H 11/26/23 00:07 Pulse Ox 100 11/26/23 00:17 Testing Laboratory Results 11/25/23 18:57 Blood Type A Positive 11/25/23 18:57 Antibody Screen NEGATIVE 11/25/23 18:57 11/25/23 18:07 POC Glucose 129 H
[2023-11-26] MEDS: fentANYL 2 MCG/ML BUPIVacaine 0.125%-NSS 100ML BAG EPI PRN (00:39)
[2023-11-26] MEDS: BUPIVACAINE 0.25% PF 30 ML VIAL ONE (01:17)
[2023-11-26] MEDS: fentANYL 2 MCG/ML BUPIVacaine 0.125%-NSS 100ML BAG ONE (01:17)
[2023-11-26] MEDS: LIDOCAINE 2%/EPINEPHRINE 1:200,000 20 ML PF ONE (01:17)
[2023-11-26] MEDS: fentaNYL citrate PF 100 MCG/2 ML VIAL ONE (01:17)
[2023-11-26] MEDS: SODIUM CHLORIDE 0.9% PF INJ 10 ML VIAL ONE (01:18)
[2023-11-26] MEDS: SODIUM CHLORIDE 0.9% PF INJ 10 ML VIAL EPI STA (01:18)
[2023-11-26] MEDS: ePHEDrine sulfate 50 MG/ML AMP ONE (01:19)
--- NOTE | 2023-11-26 04:14 | Delivery Summary ---
Vaginal Delivery Summary Date of Service November 26, 2023 Vaginal Delivery Summary Spontaneous vaginal delivery the patient arrived with ruptured membranes she did require Pitocin augmentation and then requested epidural should be noted her blood pressures were borderline at 1 stage were going to give nifedipine but then they quickly settle down during pushing there was some elevated blood pressures and this will be watched afterwards Patient delivered baby in occiput anterior position no nuchal cord once the head was delivered gentle traction on the baby no excessive force easy delivery live vigorous male Cord clamped and cut cord blood obtained placenta removed with traction IV Pitocin started Very small first-degree tear repaired with 3-0 Vicryl note the perineum was supported with gauze to prevent further tearing during delivery QBL is 54 mL Note her pressure during delivery was elevated but soon afterwards 151/87 we will watch closely I do not think she meets criteria for magnesium sulfate at this stage and we have not treated her blood pressure I suspect some of them are elevated because of pain and pushing
[2023-11-26] MEDS ORDERED: OXYTOCIN 30 UNITS/NSS 30 UNITS/500 ML BAG IV PRN (04:20)
[2023-11-26] MEDS ORDERED: HYDROCORTISONE ACETATE 25 MG SUPP PR PRN (04:20)
[2023-11-26] MEDS ORDERED: bisacodyL 10 MG SUPP PR PRN (04:20)
[2023-11-26] MEDS: BENZOCAINE 20% SPRY 85 APPLN/85 GM CAN EXT PRN (06:29)
[2023-11-26] MEDS: ACETAMINOPHEN 325 MG TAB PO PRN (06:29)
[2023-11-26] MEDS: DIPHTHER/TETAN/PERTUS Vaccine (Tdap, Adol/Adult) 0.5mL IM ONE (07:46)
--- NOTE | 2023-11-26 08:04 | Obstetrical Progress Note ---
Date of Service November 26, 2023 Assessment & Plan (1) Severe pre-eclampsia: Note patient's blood pressures were somewhat labile during the delivery process and the few elevated before she had no headache we have observed her for several hours in labor and delivery afterwards and she is maintaining elevated blood pressure specifically the systolic over 160 I had hesitated to label her as preeclampsia with severe features but she now does definitely meet the criteria discussed at length the need for magnesium will give her nifedipine now and initiate the preeclampsia protocol discussed that preeclampsia is common and can occur after delivery will monitor her in labor and delivery Physical Exam Constitutional WD/WN, vitals as above well developed and well nourished Respiratory normal respiratory effort, lungs clear to auscultation normal respiratory effort Cardiovascular RRR, no murmur, no edema Gastrointestinal (Abdomen) normal bowel sounds, soft, nontender, no hepatosplenomegaly Results & Data Vital Signs (Past 12 Hours) Vital Signs Temp Pulse Resp BP Pulse Ox 11/26/23 07:37 70 165/93 H 11/26/23 07:07 70 169/86 H 11/26/23 06:37 73 154/89 H 11/26/23 06:12 81 99 11/26/23 06:07 97 11/26/23 06:07 71 11/26/23 06:07 74 154/83 H 11/26/23 06:02 71 97 11/26/23 06:00 98.2 F 20 11/26/23 05:57 68 98 11/26/23 05:52 70 97 11/26/23 05:47 72 97 11/26/23 05:42 73 97 11/26/23 05:37 97 11/26/23 05:37 68 11/26/23 05:37 74 155/88 H 11/26/23 05:32 75 99 11/26/23 05:30 18 11/26/23 05:27 77 98 11/26/23 05:22 78 100 11/26/23 05:17 83 98 11/26/23 05:12 84 100 11/26/23 05:07 71 100 11/26/23 05:02 86 100 11/26/23 05:01 74 164/81 H 11/26/23 05:00 97.9 F 18 11/26/23 04:57 80 100 11/26/23 04:54 89 91 11/26/23 04:52 85 98 11/26/23 04:47 78 100 11/26/23 04:46 80 169/84 H 11/26/23 04:45 18 11/26/23 04:42 77 100 11/26/23 04:37 84 99 11/26/23 04:32 89 100 11/26/23 04:31 85 172/91 H 11/26/23 04:30 18 11/26/23 04:27 97 H 99 11/26/23 04:22 87 100 11/26/23 04:17 88 97 11/26/23 04:16 86 151/87 H 11/26/23 04:15 18 11/26/23 04:12 87 100 11/26/23 04:07 97 H 100 11/26/23 04:03 98 H 93 11/26/23 04:02 88 100 11/26/23 04:01 91 H 162/91 H 11/26/23 04:00 20 11/26/23 03:57 87 100 11/26/23 03:55 98 H 170/90 H 11/26/23 03:52 106 H 100 11/26/23 03:51 102 H 85 L 11/26/23 03:47 106 H 100 11/26/23 03:43 109 H 77 L 11/26/23 03:42 111 H 97 11/26/23 03:37 98 H 69 L 11/26/23 03:35 111 H 87 L 11/26/23 03:32 91 H 100 11/26/23 03:27 84 100 11/26/23 03:22 105 H 99 11/26/23 03:17 77 100 11/26/23 03:12 70 100 11/26/23 03:10 71 139/77 11/26/23 03:07 79 100 11/26/23 03:02 75 100 11/26/23 02:57 82 100 11/26/23 02:52 108 H 98 11/26/23 02:47 81 100 11/26/23 02:42 85 100 11/26/23 02:40 100 H 115/70 11/26/23 02:37 90 99 11/26/23 02:32 85 98 11/26/23 02:27 96 H 99 11/26/23 02:25 89 112/68 11/26/23 02:22 79 100 10/17/24 02:17 87 100 11/26/23 02:16 96 H 94 11/26/23 02:12 73 99 11/26/23 02:07 66 99 11/26/23 02:02 66 98 11/26/23 01:57 74 126/84 100 11/26/23 01:52 76 100 11/26/23 01:47 90 100 11/26/23 01:42 77 100 11/26/23 01:40 90 118/64 11/26/23 01:37 77 100 11/26/23 01:32 88 100 11/26/23 01:27 88 100 11/26/23 01:25 76 133/84 11/26/23 01:22 65 99 11/26/23 01:17 74 99 11/26/23 01:12 80 100 11/26/23 01:10 98.1 F 11/26/23 01:07 99 H 100 11/26/23 01:04 77 137/98 11/26/23 01:02 92 H 100 11/26/23 00:59 72 140/84 11/26/23 00:57 80 100 11/26/23 00:52 71 152/90 H 99 11/26/23 00:50 72 145/89 H 11/26/23 00:48 78 141/88 H 11/26/23 00:47 78 100 11/26/23 00:46 80 138/75 11/26/23 00:44 76 150/76 H 11/26/23 00:42 77 142/72 H 99 11/26/23 00:40 81 160/92 H 11/26/23 00:38 76 152/88 H 11/26/23 00:37 83 100 11/26/23 00:36 88 152/87 H 11/26/23 00:32 83 100 11/26/23 00:27 110 H 100 11/26/23 00:22 86 99 11/26/23 00:17 72 100 11/26/23 00:12 78 100 11/26/23 00:07 100 11/26/23 00:07 75 11/26/23 00:07 75 159/96 H 11/25/23 23:30 98.2 F 11/25/23 23:09 70 10/16/24 23:09 155/88 H 11/25/23 22:04 67 11/25/23 22:04 150/89 H 11/25/23 21:05 98.4 F 11/25/23 20:43 72 11/25/23 20:43 151/92 H
[2023-11-26] MEDS: PRENATAL VITAMIN 1 TAB PO SCH (08:13)
[2023-11-26] MEDS: DOCUSATE SODIUM 100 MG CAP PO SCH (08:14)
[2023-11-26 08:29] LABS: Hematocrit (blood only) 33.7 % (37.0-47.0); Hemoglobin 10.7 g/dl (12.0-16.0); Mean Corpuscular Hemoglobin 24.4 pg (25.0-34.0); Mean Corpuscular Hgb Conc 31.8 g/dL (32.0-36.0); Mean Corpuscular Volume 76.9 fL (80.0-100.0); Mean Platelet Volume 10.7 fL (9.4-12.4); Platelet Count 261 K/uL (130-400); RDW Coefficient of Variation 15.6 % (11.5-14.5); RDW Standard Deviation 42.5 fL (36.4-46.3); Red Blood Count 4.38 M/uL (4.20-5.40); White Blood Count 24.44 K/ul (4.8-10.8)
[2023-11-26 08:44] LABS: Albumin Globulin Ratio 1.1 (0.9-2); Albumin Level 3.2 gm/dl (3.4-5.0); BUN Creatinine Ratio 19.2 (10-20); Bilirubin,Total 0.5 mg/dl (0.2-1.0); Calcium 8.8 mg/dl (8.6-10.3); Creatinine Clr Calc Pharmacy 142.8 ml/min; Potassium 3.7 mmol/L (3.5-5.1); Total Protein 6.2 gm/dl (6.0-8.3)
[2023-11-26 08:59] LABS: Basophils # (auto) 0.05 K/uL (0.00-0.20); Basophils % (auto) 0.2 %; Eosinophils # (auto) 7.68 K/uL (0.00-0.50); Eosinophils % (auto) 31.4 %; Immature Granulocytes # (auto) 0.11 K/uL (0.01-0.20); Immature Granulocytes % (auto) 0.5 %; Lymphocytes # (auto) 1.24 K/uL (1.20-3.40); Lymphocytes % (auto) 5.1 %; Monocytes # (auto) 1.35 K/uL (0.11-0.59); Monocytes % (auto) 5.5 %; Neutrophils # (auto) 14.01 K/uL (1.40-6.50); Neutrophils % (auto) 57.3 %; RBC Morphology Unremarkable
--- NOTE | 2023-11-26 09:05 | Anesthesia Procedure Note ---
Date of Service November 26, 2023 Anesthesia Post Epidural Note Vital Signs Vital Signs: Temp Pulse Resp BP Pulse Ox 98.2 F 88 20 154/88 H 99 11/26/23 06:00 11/26/23 09:00 11/26/23 08:23 11/26/23 09:00 11/26/23 06:12 Pain Intensity Bilateral Lower Abdomen: Pain Intensity: 2 Notes Mental Status: alert / awake / arousable and participated in evaluation Nausea / Vomiting: adequately controlled Pain: adequately controlled Airway Patency, RR, SpO2: stable & adequate BP & HR: stable & adequate Hydration State: stable & adequate Neuraxial Anesthesia: was administered and sensory block is resolving Anesthetic Complications: no major complications apparent and Pt Satisfied with anesthetic care Epidural: Removed without complications and With tip intact Notes: last plt check wnl 1 hr prior to removal
[2023-11-26] MEDS: LACTATED RINGER'S 1,000 ML IV SCH (09:59)
[2023-11-26] MEDS: MAGNESIUM SULFATE / WTR 40 GM/1,000 ML BAG IV SCH (09:59)
[2023-11-26] MEDS: MAG SULFATE 4GM BOLUS FROM BAG IV ONE (11:15)
[2023-11-26 14:17] LABS: Hematocrit (blood only) 33.1 % (37.0-47.0); Hemoglobin 10.8 g/dl (12.0-16.0); Mean Corpuscular Hemoglobin 24.7 pg (25.0-34.0); Mean Corpuscular Hgb Conc 32.6 g/dL (32.0-36.0); Mean Corpuscular Volume 75.6 fL (80.0-100.0); Mean Platelet Volume 10.9 fL (9.4-12.4); Platelet Count 268 K/uL (130-400); RDW Coefficient of Variation 15.6 % (11.5-14.5); RDW Standard Deviation 42.1 fL (36.4-46.3); Red Blood Count 4.38 M/uL (4.20-5.40); White Blood Count 21.04 K/ul (4.8-10.8)
[2023-11-26 14:31] LABS: Albumin Globulin Ratio 1.1 (0.9-2); Albumin Level 3.2 gm/dl (3.4-5.0); Bilirubin,Total 0.4 mg/dl (0.2-1.0); Calcium 7.7 mg/dl (8.6-10.3); Creatinine Clr Calc Pharmacy 148.5 ml/min; Globulin 2.8 gm/dl (2.5-4.0); Magnesium Therapeutic L&D Only 4.2 mg/dL (4.0-8.0); Potassium 3.6 mmol/L (3.5-5.1)
[2023-11-26 22:58] LABS: Hematocrit (blood only) 32.4 % (37.0-47.0); Hemoglobin 10.3 g/dl (12.0-16.0); Mean Corpuscular Hemoglobin 24.6 pg (25.0-34.0); Mean Corpuscular Hgb Conc 31.8 g/dL (32.0-36.0); Mean Corpuscular Volume 77.5 fL (80.0-100.0); Mean Platelet Volume 11.5 fL (9.4-12.4); Platelet Count 291 K/uL (130-400); RDW Coefficient of Variation 15.9 % (11.5-14.5); RDW Standard Deviation 43.6 fL (36.4-46.3); Red Blood Count 4.18 M/uL (4.20-5.40)
[2023-11-26 23:14] LABS: Albumin Globulin Ratio 1.1 (0.9-2); Albumin Level 3.1 gm/dl (3.4-5.0); Bilirubin,Total 0.3 mg/dl (0.2-1.0); Calcium 7.1 mg/dl (8.6-10.3); Creatinine Clr Calc Pharmacy 130.3 ml/min; Globulin 2.8 gm/dl (2.5-4.0); Magnesium Therapeutic L&D Only 5.3 mg/dL (4.0-8.0); Potassium 3.6 mmol/L (3.5-5.1); Total Protein 5.9 gm/dl (6.0-8.3)
[2023-11-27] MEDS: oxyCODONE/ACETAMINOPHEN 5mg/325mg TAB PO PRN (02:06)
[2023-11-27] MEDS: MoRPHine SULFATE 4 MG/ML 1 ML CARP\\VIAL IV STA (05:41)
--- NOTE | 2023-11-27 06:08 | Obstetrical Progress Note ---
Date of Service <Yoandy DuranCarla Tirado - Last Filed: 11/27/23 06:49> November 27, 2023 Assessment & Plan <Yoandy DuranCarla Tirado DO - Last Filed: 11/27/23 06:49> (1) state: Patient is a 38yo day 1 s/p . Feeling a bit better today, BP elevated otherwise VSS on ICDs while on mag Pain control with percocet, morphine as tolerated Hgb: 10.3 today down from 10.7 yesterday Consider moving to regular floor if clinical status continues to improve (2) Severe pre-eclampsia: headache managed with mag Percocet and morphine for pain BP still elevated, monitor VSS and for changes in mental status Trimester: third trimester Qualified Code(s): O14.13 - Severe pre-eclampsia, third trimester <Anju Ventura, DO - Last Filed: 11/27/23 07:03> (1) state: (2) Severe pre-eclampsia: Percocet and morphine for pain BP still elevated, monitor VSS and for changes in mental status Subjective <Yoandy DuranCarla Tirado DO - Last Filed: 11/27/23 06:49> Patient is a 38yo day 1 s/p . Ambulation: no due to mag, on ICDs Voiding: mcduffie, no BM Passing gas: yes Diet tolerance: tolerating OB reg Lochia: decreasing Feeding type: breast Current pain: headache resolving, mild abd pain Resting comfortably this AM in mild distress, on morphine for headache. Denies fever, body aches, chills, SOB, n/v/d, LE pain/swelling, LE numbness/tingling. Review of Systems as above Physical Exam <Yoandy DuranCarla Tirado DO - Last Filed: 11/27/23 06:49> General: A&Ox4, patient in mild distress, appearing tired Skin: warm, dry, intact HEENT: NC/AT, anicteric sclerae, conjunctive w/o injection Heart: RRR, no m/r/g Lungs: clear to auscultation b/l, equal air entry, no wheezing, rales, rhonchi Abd: +BM, uterus firm, fundus at level of umbilicus, no tenseness or guarding Ext: no erythema, swelling, or tenderness to palpation; Jazmin's neg, no clubbing or cyanosis Neuro: speech intact, no facial droop, moving all ext on command and spontaneously Results & Data <Yoandy Tirado DO - Last Filed: 11/27/23 06:49> Vital Signs (Past 12 Hours) Vital Signs Temp Pulse Resp BP Pulse Ox 11/27/23 06:01 61 148/72 H 11/27/23 05:58 60 96 11/27/23 05:53 65 97 11/27/23 05:48 68 99 11/27/23 05:43 64 100 11/27/23 05:38 82 98 11/27/23 05:33 74 97 11/27/23 05:28 85 98 11/27/23 05:23 79 98 11/27/23 05:18 69 97 11/27/23 05:13 76 97 11/27/23 05:08 66 97 11/27/23 05:03 71 97 11/27/23 05:01 66 18 135/68 11/27/23 04:58 66 97 11/27/23 04:53 85 98 11/27/23 04:48 70 97 11/27/23 04:43 72 98 11/27/23 04:38 74 97 11/27/23 04:33 76 98 11/27/23 04:31 77 139/84 11/27/23 04:28 80 98 11/27/23 04:23 76 99 11/27/23 04:18 76 98 11/27/23 04:13 67 98 11/27/23 04:08 67 99 11/27/23 04:07 73 18 141/78 H 11/27/23 04:03 69 99 11/27/23 03:58 74 99 11/27/23 03:53 73 98 11/27/23 03:48 72 98 11/27/23 03:43 82 97 11/27/23 03:38 80 96 11/27/23 03:33 76 97 11/27/23 03:31 77 129/72 11/27/23 03:29 79 93 11/27/23 03:28 75 96 11/27/23 03:23 73 95 11/27/23 03:18 74 95 10/18/24 03:13 79 97 24 03:12 74 94 24 03:08 73 95 11/27/23 03:03 74 95 24 03:01 71 18 114/67 24 03:00 18 24 02:58 71 96 24 02:53 70 96 24 02:48 71 96 11/27/23 02:43 70 96 11/27/23 02:38 71 97 11/27/23 02:33 69 97 24 02:31 64 154/70 H 24 02:28 68 97 11/27/23 02:23 74 100 11/27/23 02:18 72 99 11/27/23 02:13 74 99 11/27/23 02:08 71 100 11/27/23 02:03 81 100 11/27/23 02:01 85 18 145/84 H 11/27/23 01:58 73 100 11/27/23 01:53 79 99 11/27/23 01:48 76 99 11/27/23 01:43 76 99 11/27/23 01:38 71 98 11/27/23 01:33 72 98 11/27/23 01:31 72 147/80 H 11/27/23 01:28 77 98 11/27/23 01:23 80 98 11/27/23 01:18 76 97 11/27/23 01:13 78 97 11/27/23 01:08 81 97 11/27/23 01:03 71 98 11/27/23 01:01 70 18 120/76 24 00:58 71 96 24 00:53 73 98 24 00:48 69 97 24 00:43 72 96 24 00:39 75 94 24 00:38 71 96 1824 00:34 72 94 1824 00:33 70 95 18/24 00:31 66 119/68 18/24 00:28 70 96 1824 00:23 73 99 1824 00:21 71 94 1824 00:18 69 97 1824 00:13 71 96 18/24 00:08 69 96 10/18/24 00:03 69 96 11/27/23 00:01 67 18 130/72 11/26/23 23:58 72 98 11/26/23 23:53 66 99 11/26/23 23:48 79 99 11/26/23 23:43 74 98 11/26/23 23:38 70 99 11/26/23 23:33 72 98 11/26/23 23:31 72 155/81 H 11/26/23 23:28 85 97 11/26/23 23:23 70 98 11/26/23 23:18 70 96 11/26/23 23:13 74 97 11/26/23 23:08 71 97 11/26/23 23:03 71 98 11/26/23 23:01 37.0 C 70 18 129/70 11/26/23 23:00 18 11/26/23 22:58 72 97 11/26/23 22:53 72 97 11/26/23 22:48 75 97 11/26/23 22:43 77 97 11/26/23 22:38 73 98 11/26/23 22:33 80 96 11/26/23 22:31 70 134/75 11/26/23 22:28 72 97 11/26/23 22:23 84 98 11/26/23 22:18 72 96 11/26/23 22:13 73 96 11/26/23 22:08 74 96 11/26/23 22:03 75 95 11/26/23 22:01 74 18 112/66 11/26/23 21:58 77 96 11/26/23 21:53 76 95 11/26/23 21:48 81 95 11/26/23 21:43 80 95 11/26/23 21:38 72 95 11/26/23 21:33 74 95 11/26/23 21:31 74 115/67 11/26/23 21:28 73 96 11/26/23 21:23 74 96 11/26/23 21:18 75 98 11/26/23 21:13 80 99 11/26/23 21:08 76 97 11/26/23 21:03 74 97 11/26/23 21:01 76 18 124/70 11/26/23 20:58 78 97 11/26/23 20:53 76 97 11/26/23 20:48 84 96 11/26/23 20:43 93 H 98 11/26/23 20:38 78 97 11/26/23 20:33 80 96 11/26/23 20:31 72 111/66 11/26/23 20:28 81 96 11/26/23 20:23 86 96 11/26/23 20:18 84 97 11/26/23 20:13 85 99 11/26/23 20:08 75 98 11/26/23 20:03 76 98 11/26/23 20:01 77 18 123/72 11/26/23 19:58 75 98 11/26/23 19:53 80 99 11/26/23 19:48 72 100 11/26/23 19:43 81 99 11/26/23 19:38 73 99 11/26/23 19:33 75 98 11/26/23 19:31 78 125/78 11/26/23 19:28 78 100 11/26/23 19:23 84 99 11/26/23 19:18 87 98 11/26/23 19:13 79 97 11/26/23 19:08 78 98 11/26/23 19:03 83 98 11/26/23 19:01 36.7 C 84 18 111/76 11/26/23 19:00 18 11/26/23 18:58 86 98 11/26/23 18:53 80 97 11/26/23 18:48 88 98 11/26/23 18:43 92 H 99 11/26/23 18:38 89 99 11/26/23 18:33 91 H 98 11/26/23 18:31 88 122/75 11/26/23 18:28 89 98 11/26/23 18:23 84 98 11/26/23 18:18 85 98 11/26/23 18:13 76 98 11/26/23 18:08 78 98 Supervising Physician <Anju Ventura, - Last Filed: 11/27/23 07:03> Co-Signing Physician Notes Resident Physician Supervision Note: I interviewed and examined the patient. Discussed with Dr. Tirado and agree with findings and plan as documented in the note. Any exceptions or clarifications are listed here: PPD#1, magnesium - will watch for labs, if normal this morning ok to stop mag. Had headache overnight - she thought it was because she's been unable to sleep, significantly improved with morphine. OK to stop mag and transfer to PP if labs wnl. Will continue to monitor BPs. Documented By: Anju Ventura DO Resident Activity Tracking <Yoandy Tirado DO - Last Filed: 11/27/23 06:49> Resident Involvement: Resident Care Provided Care Provided: OB Delivery
[2023-11-27 07:21] LABS: Hematocrit (blood only) 30.9 % (37.0-47.0); Mean Corpuscular Hemoglobin 24.8 pg (25.0-34.0); Mean Corpuscular Hgb Conc 32.4 g/dL (32.0-36.0); Mean Corpuscular Volume 76.5 fL (80.0-100.0); Mean Platelet Volume 11.6 fL (9.4-12.4); Platelet Count 288 K/uL (130-400); RDW Coefficient of Variation 15.9 % (11.5-14.5); RDW Standard Deviation 42.9 fL (36.4-46.3); Red Blood Count 4.04 M/uL (4.20-5.40); White Blood Count 18.08 K/ul (4.8-10.8)
[2023-11-27 07:38] LABS: Albumin Globulin Ratio 1.1 (0.9-2); Albumin Level 3.1 gm/dl (3.4-5.0); BUN Creatinine Ratio 13.5 (10-20); Bilirubin,Total 0.3 mg/dl (0.2-1.0); Calcium 6.9 mg/dl (8.6-10.3); Creatinine Clr Calc Pharmacy 142.8 ml/min; Globulin 2.8 gm/dl (2.5-4.0); Potassium 3.9 mmol/L (3.5-5.1); Total Protein 5.9 gm/dl (6.0-8.3)
[2023-11-27] MEDS: ACETAMINOPHEN 500 MG TAB PO STA (10:01)
[2023-11-27] MEDS: METOCLOPRAMIDE HCL 10 MG TABLET PO STA (10:02)
[2023-11-27] MEDS ORDERED: bisacodyL 5 MG TABEC PO SCH (20:00)
[2023-11-28] MEDS: NIFEdipine EXTENDED REL 30 MG TABCR PO STA (04:11)
--- NOTE | 2023-11-28 05:43 | Obstetrical Progress Note ---
Date of Service <Yoandy RogerCarla Tirado DO - Last Filed: 11/28/23 07:10> November 28, 2023 Assessment & Plan <Yoandy RogerCarla Tirado DO - Last Filed: 11/28/23 07:10> (1) state: Patient is a 38yo day 2 s/p . Still a bit better today, BP elevated otherwise VSS Has been moved to floor No longer on mag Pain control with percocet, morphine as tolerated, intends to use breast pump upon discharge Hgb: 10, slightly down from 10.3 yesterday Follow up with Dr. Estrella in 6wks (2) Severe pre-eclampsia: managed with mag, no longer on mag Given nifedipine overnight for BP Percocet, morphine, Tylenol as needed for pain BP still elevated, monitor VSS and for changes in mental status Monitor BP and symptoms today, possible discharge if BP resolving and no preeclamptic symptoms Trimester: third trimester Qualified Code(s): O14.13 - Severe pre-eclampsia, third trimester <Agatha Ryder MD - Last Filed: 11/28/23 07:27> (1) state: (2) Severe pre-eclampsia: Subjective <Yoandy RogerCarla Tirado DO - Last Filed: 11/28/23 07:10> Patient is a 38yo day 2 s/p . Ambulation: yes Voiding: urinating, no BM yet Passing gas: yes Diet tolerance: tolerating OB reg Lochia: decreasing Feeding type: breast, intends to use pump on discharge Current pain: headache resolving, mild lower abd pain. Resting comfortably this AM in NAD. Denies fever, body aches, chills, SOB, n/v/d, LE pain/swelling, LE numbness/tingling. Review of Systems as above Physical Exam <Yoandy Tirado DO - Last Filed: 11/28/23 07:10> General: A&Ox4, resting comfortably in NAD, nontoxic appearing Skin: warm, dry, intact HEENT: NC/AT, anicteric sclerae, conjunctive w/o injection Heart: RRR, no m/r/g Lungs: clear to auscultation b/l, equal air entry, no wheezing, rales, rhonchi Abd: +BM, uterus firm, fundus at level of umbilicus, mild tenderness to palpation suprapubic Ext: no erythema, swelling, or tenderness to palpation; Jazmin's neg, no clubbing or cyanosis Neuro: speech intact, no facial droop, moving all ext on command and spontaneously Results & Data <Yoandy Tirado, - Last Filed: 11/28/23 07:10> Vital Signs (Past 12 Hours) Vital Signs Temp Pulse Resp BP BP Pulse Ox O2 Del Method 11/28/23 05:15 144/87 H 11/28/23 03:33 37.1 C 68 16 168/82 H 97 Room Air 11/27/23 23:10 37.2 C 60 16 149/79 H 97 Room Air 11/27/23 20:30 72 147/83 H 11/27/23 19:10 36.7 C 69 18 157/81 H 97 Room Air Supervising Physician <Agatha Ryder MD - Last Filed: 11/28/23 07:27> Co-Signing Physician Notes Resident Physician Supervision Note: I interviewed and examined the patient. Discussed with Dr. Borrego and agree with findings and plan as documented in the note. Any exceptions or clarifications are listed here: PP2 s/p c/b pre-eclampsia w/ severe features. Came off of mag yesterday am, VERA improved w/ tyl and reglan. Meeting all pp milestones. Mild range bps until this AM when severe again, tx w/ nifedipine xl 30mg and improved to mild range. Exam benign and wnl. Discussed monitoring of bps today given just started meds a few hours ago, reasoning for this. Pt strongly desires dc today, discussed would at least want to monitor BPs throughout the day to see if meets criteria for this. Will send msg for one wk bp check in case can go home Documented By: Agatha Ryder MD Resident Activity Tracking <Yoandy Tirado DO - Last Filed: 11/28/23 07:10> Resident Involvement: Resident Care Provided Care Provided: OB Delivery
[2023-11-28] MEDS: METOCLOPRAMIDE HCL 10 MG TABLET PO PRN (07:47)
[2023-11-28 07:54] VITALS: O2SAT 98
[2023-11-28 11:18] VITALS: PULSE 77; RESP 18; TEMP 97.7
[2023-11-28 12:57] VITALS: BP 147/83
[2023-11-29] MEDS ORDERED: NIFEdipine EXTENDED REL 30 MG TABCR PO SCH (04:00)
== END 2023-11-28 13:45 | disposition home or self-care (01) | DRG 807 ==
LOC: OPB 17:58 → 4S1 18:00 → 4E2 11-27 16:03
DX: Z3A.39 39 weeks gestation of pregnancy; Z37.0 Single live birth; Z88.2 Allergy status to sulfonamides; O70.0 First degree perineal laceration during delivery; O14.14 Severe pre-eclampsia complicating childbirth; O42.02 Full-term premature rupture of membranes, onset of labor within 24 hours of rupture